=== PATIENT | male | born 1990 | race Caucasian/White ===

== ENCOUNTER 2019-02-02 23:58 | Emergency (ER) | payer OTHER ==
[~2019-02-02] VITALS: Ht 170.2 cm; Wt 68.0 kg
[2019-02-03 00:29] LABS: BASO % 0 % (0-3); EOS % 0 % (0-3); HEMATOCRIT 26.7 % (39.0-53.0); HEMOGLOBIN 8.6 g/dL (13.0-17.5); LYMPH # 1.2 x10^3/uL (1.0-4.8); LYMPH % 26 % (24-48); MEAN CORPUSCULAR HEMOGLOBIN 26 pg (25-35); MEAN CORPUSCULAR HGB CONC 32 g/dL (31-37); MEAN CORPUSCULAR VOLUME 80 fL (79-100); MONO # 0.4 x10^3/uL (0.0-1.1); MONO % 10 % (0-9); NEUT # 2.9 x10^3/uL (1.8-7.7); NEUT % 65 % (31-73); PLATELET COUNT 212 x10^3/uL (140-400); RED BLOOD COUNT 3.35 x10^6/uL (4.30-5.70); RED CELL DISTRIBUTION WIDTH 16.6 % (11.5-14.5); WHITE BLOOD COUNT 4.5 x10^3/uL (4.0-11.0)
[2019-02-03] MEDS ORDERED: IV NORMAL SALINE 1000ML BAG 1,000 ML IV SCH (00:30)
[2019-02-03 00:43] LABS: CALCIUM 7.5 mg/dL (8.5-10.1); GFR 87.7; POTASSIUM 3.7 mmol/L (3.5-5.1)
[2019-02-03 00:45] LABS: PROTHROMBIN TIME PATIENT 15.8 SEC (11.7-14.0)
[2019-02-03] MEDS ORDERED: LIDOCAINE 1% Multi-Dose 20 ML VIAL. INJ ONE (00:45)
[2019-02-03 00:51] LABS: ALBUMIN 3.5 g/dL (3.4-5.0); ALBUMIN/GLOBULIN RATIO 1.3 (1.0-1.7); TOTAL BILIRUBIN 0.3 mg/dL (0.2-1.0); TOTAL PROTEIN 6.1 g/dL (6.4-8.2)
--- NOTE | 2019-02-03 01:12 | PHYS DOC ---
Adult General Chief Complaint Chief Complaint: TRAUMA ALERT HPI HPI Patient is a 28 year old right handed incarcerated male who brought in by EMS because of laceration of left arm. Patient is incarcerated since 2017 and transferred to [facility] facility yesterday. Patient stated he tried to cut his left cubital area with his fingernail around 2300 suicidal ideation. EMS reported that patient has about 2 L of blood around his laceration and was pale and tachycardic improved with 1 L of IV fluids. EMS had to put pressure dressing and tourniquet to control the bleeding. Patient later admitted that he used milton or blade to cut himself and long-term staff found 2 razor blade at his room. Patient is up-to-date with his tetanus immunization. Review of Systems Review of Systems Constitutional: Denies fever or chills [] Eyes: Denies change in visual acuity, redness, or eye pain [] HENT: Denies nasal congestion or sore throat [] Respiratory: Denies cough or shortness of breath [] Cardiovascular: No additional information not addressed in HPI [] GI: Denies abdominal pain, nausea, vomiting, bloody stools or diarrhea [] : Denies dysuria or hematuria [] Musculoskeletal: Denies back pain or joint pain [] Integument: Denies rash or skin lesions [] Neurologic: Denies headache, focal weakness or sensory changes [] Endocrine: Denies polyuria or polydipsia [] All other systems were reviewed and found to be within normal limits, except as documented in this note. Current Medications Current Medications Current Medications Medications (Trade) Dose Ordered Sig/Yuliet Start Time Stop Time Status Last Admin Dose Admin Cefazolin Sodium 50 ml @ 100 mls/hr 1X ONCE 02/03/19 00:45 02/03/19 01:14 DC 02/03/19 00:45 100 MLS/HR Lidocaine HCl (Lidocaine 1% 20ml Vial) 20 ml 1X ONCE 02/03/19 00:45 02/03/19 00:46 DC 02/03/19 00:45 20 ML Sodium Chloride 1,000 ml @ 1,000 mls/hr Q1H 02/03/19 00:30 02/03/19 01:29 DC 02/03/19 00:45 1,000 MLS/HR Allergies Allergies Allergies Coded Allergies Type Severity Reaction Last Updated Verified No Known Drug Allergies 02/03/19 No Physical Exam Physical Exam Constitutional: Well nourished, mild distress, non-toxic appearance, pale. [] HENT: Normocephalic, atraumatic. Eyes: PERRLA, EOMI, conjunctiva normal, no discharge. [] Neck: Normal range of motion, no tenderness, supple, no stridor. [] Cardiovascular:Heart rate regular rhythm, no murmur [] Lungs & Thorax: Bilateral breath sounds clear to auscultation [] Skin: Warm, dry, no erythema, no rash. [] Extremities: 3 cm transverse and deep left cubital laceration with active bleeding that stopped with pressure dressing. Neurologic: Alert and oriented X 3, normal motor function, normal sensory function, no focal deficits noted. [] Psychologic: Affect normal, judgement normal, suicidal ideation. Current Patient Data Vital Signs Vital Signs Date Time Temp Pulse Resp B/P (MAP) Pulse Ox O2 Delivery O2 Flow Rate FiO2 02/03/19 01:22 74 16 135/94 (108) 100 Room Air 02/02/19 23:58 98.1 98.1 Lab Values Laboratory Tests Test 02/03/19 00:17 White Blood Count 4.5 x10^3/uL (4.0-11.0) Red Blood Count 3.35 x10^6/uL (4.30-5.70) L Hemoglobin 8.6 g/dL (13.0-17.5) L Hematocrit 26.7 % (39.0-53.0) L Mean Corpuscular Volume 80 fL (79-100) Mean Corpuscular Hemoglobin 26 pg (25-35) Mean Corpuscular Hemoglobin Concent 32 g/dL (31-37) Red Cell Distribution Width 16.6 % (11.5-14.5) H Platelet Count 212 x10^3/uL (140-400) Neutrophils (%) (Auto) 65 % (31-73) Lymphocytes (%) (Auto) 26 % (24-48) Monocytes (%) (Auto) 10 % (0-9) H Eosinophils (%) (Auto) 0 % (0-3) Basophils (%) (Auto) 0 % (0-3) Neutrophils # (Auto) 2.9 x10^3/uL (1.8-7.7) Lymphocytes # (Auto) 1.2 x10^3/uL (1.0-4.8) Monocytes # (Auto) 0.4 x10^3/uL (0.0-1.1) Eosinophils # (Auto) 0.0 x10^3/uL (0.0-0.7) Basophils # (Auto) 0.0 x10^3/uL (0.0-0.2) Prothrombin Time 15.8 SEC (11.7-14.0) H Prothrombin Time INR 1.3 (0.8-1.1) H Activated Partial Thromboplast Time 25 SEC (24-38) Sodium Level 134 mmol/L (136-145) L Potassium Level 3.7 mmol/L (3.5-5.1) Chloride Level 98 mmol/L (98-107) Carbon Dioxide Level 28 mmol/L (21-32) Anion Gap 8 (6-14) Blood Urea Nitrogen 7 mg/dL (8-26) L Creatinine 1.0 mg/dL (0.7-1.3) Estimated GFR (Cockcroft-Gault) 87.7 BUN/Creatinine Ratio 7 (6-20) Glucose Level 104 mg/dL (70-99) H Calcium Level 7.5 mg/dL (8.5-10.1) L Total Bilirubin 0.3 mg/dL (0.2-1.0) Aspartate Amino Transferase (AST) 31 U/L (15-37) Alanine Aminotransferase (ALT) 25 U/L (16-63) Alkaline Phosphatase 39 U/L (46-116) L Total Protein 6.1 g/dL (6.4-8.2) L Albumin 3.5 g/dL (3.4-5.0) Albumin/Globulin Ratio 1.3 (1.0-1.7) Ethyl Alcohol Level < 10 mg/dL (0-10) Laboratory Tests 02/03/19 00:17 Laboratory Tests 02/03/19 00:17 EKG EKG [] Radiology/Procedures Radiology/Procedures [] Course & Med Decision Making Course & Med Decision Making Evaluation of patient in ER showed 1-year-old male incarcerated patient with large laceration of left thumb without active bleeding that was repaired with suture with complaining of bleeding. Also had hemoglobin of 8.6 and long-term was advised to repeat hemoglobin in the morning. Dragon Disclaimer Dragon Disclaimer This electronic medical record was generated, in whole or in part, using a voice recognition dictation system. Departure Departure Impression: Primary Impression: Laceration of forearm, left, complicated Additional Impressions: Suicidal behavior with attempted self-injury Anemia Condition: RELEASED IN CUSTODY (To long-term) Patient Instructions: Anemia, FAQs, Laceration Care, Adult, Suicidal Feelings, How to Help Yourself, Sutured Wound Care Additional Instructions: Follow-up with previous on physician for recheck of blood regarding anemia Keep wound clean and dry Suture removal in 10 days Follow-up with long-term psychiatric in one day Scripts Cephalexin (KEFLEX) 500 Mg Capsule 2 CAP PO Q12HR, #20 CAP Prov: TAWNY CORREA MD 02/03/19 Ibuprofen (IBUPROFEN) 600 Mg Tablet 600 MG PO PRN Q6HRS PRN for PAIN, #20 TAB take with food or milk Prov: TAWNY CORREA MD 02/03/19 Laceration Repair Lac Repair Indication: Left forearm laceration Procedure: The patient was placed in the appropriate position and anesthesia around the laceration of left cubital area was given with 1% lidocaine. The area was then irrigated with normal saline. Active bleeding was repaired with 2 sutures of Vicryl 4-0.The laceration was repaired with 3 sutures of 3-0 nylon The wound area was then dressed with non adhesive and pressure dressing. Total repaired wound length: 3 cm Other Items: [OTHER ITEMS] The patient tolerated the procedure well. Complications: none. Problem Qualifiers Primary Impression: Laceration of forearm, left, complicated Encounter type: initial encounter Qualified Codes: S51.812A - Laceration without foreign body of left forearm, initial encounter Additional Impressions: Anemia Anemia type: unspecified type Qualified Codes: D64.9 - Anemia, unspecified TAWNY CORREA MD Feb 03, 2019 01:12
[2019-02-03 01:22] VITALS: BP 135/94
[2019-02-03] MEDS ORDERED: IBUP-1007 PO (01:30)
[2019-02-03] MEDS ORDERED: CEPH-264 PO (01:30)
--- NOTE | 2019-02-03 08:47 | RAD ---
Examination: KUB History: Possible swallowing of a razor blade. Comparison/Correlation: None Findings: Frontal view of the abdomen was obtained by portable technique. There is no bowel obstruction or extraluminal gas. No radiopaque foreign bodies identified. Ill-defined density involving the right upper quadrant overlying the liver is present. This may represent calcification. Impression: No radiopaque foreign body. Electronically signed by: Erwin Chandra MD (02/03/2019 8:44 AM) [facility]
== END 2019-02-03 01:47 | disposition home or self-care (01) ==
LOC: ER 23:58 → EEVIPCON 23:58 → ER 02-03 01:47
DX: S51.812A Laceration without foreign body of left forearm, initial encounter (principal); D64.9 Anemia, unspecified; T14.91XA Suicide attempt, initial encounter; X78.8XXA Intentional self-harm by other sharp object, initial encounter; Y93.89 Activity, other specified; Y92.89 Other specified places as the place of occurrence of the external cause; Y99.8 Other external cause status
CPT/HCPCS: 12002; 36415; 74018; 80053; 85025; 85610; 85730; 86850; 86900; 86901; 96365; 99285; G0480; J0690; J7030; 12032

== ENCOUNTER 2019-03-10 23:35 | Observation (INO) | payer OTHER ==
[~2019-03-10] VITALS: Ht 167.6 cm; Wt 66.5 kg
[~2019-03-10 23:35] MED LIST: CEPH-264 PO; IBUP-1007 PO
[2019-03-11] MEDS ORDERED: LIDOCAINE 1% PF 2 ML VIAL. ONE (00:13)
[2019-03-11] MEDS ORDERED: LIDOCAINE 1% PF 2 ML VIAL. INJ ONE (00:30)
[2019-03-11 00:59] LABS: BASO # 0.1 x10^3/uL (0.0-0.2); BASO % 2 % (0-3); EOS % 0 % (0-3); HEMATOCRIT 27.5 % (39.0-53.0); HEMOGLOBIN 8.9 g/dL (13.0-17.5); LYMPH # 2.2 x10^3/uL (1.0-4.8); LYMPH % 51 % (24-48); MEAN CORPUSCULAR HEMOGLOBIN 24 pg (25-35); MEAN CORPUSCULAR HGB CONC 33 g/dL (31-37); MEAN CORPUSCULAR VOLUME 74 fL (79-100); MONO # 0.3 x10^3/uL (0.0-1.1); MONO % 7 % (0-9); NEUT # 1.7 x10^3/uL (1.8-7.7); NEUT % 39 % (31-73); PLATELET COUNT 338 x10^3/uL (140-400); WHITE BLOOD COUNT 4.3 x10^3/uL (4.0-11.0)
--- NOTE | 2019-03-11 01:04 | PHYS DOC ---
Past Medical History Past Medical History: Seizure, Other Additional Past Medical Histor: Hep. C Past Surgical History: Tonsillectomy Additional Past Surgical Histo: unknown Alcohol Use: None Drug Use: None Adult General Chief Complaint Chief Complaint: LACERATION/AVULSION HPI HPI Patient is a 28 year old male who presents to the emergency department today, accompanied by 2 correctional officers from [place], via EMS with reports of an open laceration to his left antecubital area. She states he cut his left arm earlier today and [facility]. He was placed on a psychiatric suicide watch, patient denies any suicidal ideations or homicidal ideations. Patient states he ripped out his own sutures when they informed him that he had to stay in the [facility] for observation. He denies any numbness, tingling, weakness, or decreased range of motion of the affected extremity. He rates his pain as a 5 out of 10 on the pain scale, he states his last tetanus was less than 5 years ago. Patient states he has a history of cutting. Review of Systems Review of Systems Constitutional: Denies fever or chills [] Musculoskeletal: Denies back pain or joint pain [] Integument: Denies rash; see HPI Neurologic: Denies headache, focal weakness or sensory changes [] complete systems were reviewed and found to be within normal limits, except as documented in this note. Current Medications Current Medications Current Medications Medications (Trade) Dose Ordered Sig/Yuliet Start Time Stop Time Status Last Admin Dose Admin Lidocaine HCl (Xylocaine-Mpf 1% 2ml Vial) 2 ml STK-MED ONCE 03/11/19 00:13 03/11/19 00:13 DC Naproxen (Naprosyn) 500 mg 1X ONCE 03/11/19 01:30 03/11/19 01:31 Neomycin/ Polymyxin/ Bacitracin (Triple Antibiotic Ointment) 1 pkt 1X ONCE 03/11/19 01:30 03/11/19 01:31 Sodium Chloride 1,000 ml @ 1,000 mls/hr 1X ONCE 03/11/19 01:15 03/11/19 02:14 UNV Allergies Allergies Allergies Coded Allergies Type Severity Reaction Last Updated Verified No Known Drug Allergies 02/03/19 No Physical Exam Physical Exam Constitutional: Well developed, well nourished, no acute distress, non-toxic ap pearance. [] HENT: Normocephalic, atraumatic, bilateral external ears normal, oropharynx moist, no oral exudates, nose normal [] Eyes: PERRLA, conjunctiva normal, no discharge. [] Neck: Normal range of motion, no stridor. [] Cardiovascular:Heart rate regular rhythm Lungs & Thorax: Respirations even and unlabored, no retractions, no respiratory distress Skin: Warm, dry, no erythema, no rash, pallor noted; 3.5 cm laceration noted to medial antecubital space without any active bleeding. Extremities: No tenderness, no cyanosis, no clubbing, ROM intact, no edema. [] Neurologic: Alert and oriented X 3, normal motor function, normal sensory function, no focal deficits noted. [] Psychologic: Affect is flat, judgement normal, mood normal. [] Current Patient Data Vital Signs Vital Signs Date Time Temp Pulse Resp B/P (MAP) Pulse Ox O2 Delivery O2 Flow Rate FiO2 03/11/19 01:09 58 15 155/99 (117) 100 Room Air 03/10/19 23:35 98.1 98.1 Lab Values Laboratory Tests Test 03/11/19 00:50 White Blood Count 4.3 x10^3/uL (4.0-11.0) Red Blood Count 3.70 x10^6/uL (4.30-5.70) L Hemoglobin 8.9 g/dL (13.0-17.5) L Hematocrit 27.5 % (39.0-53.0) L Mean Corpuscular Volume 74 fL (79-100) L Mean Corpuscular Hemoglobin 24 pg (25-35) L Mean Corpuscular Hemoglobin Concent 33 g/dL (31-37) Red Cell Distribution Width 18.0 % (11.5-14.5) H Platelet Count 338 x10^3/uL (140-400) Neutrophils (%) (Auto) 39 % (31-73) Lymphocytes (%) (Auto) 51 % (24-48) H Monocytes (%) (Auto) 7 % (0-9) Eosinophils (%) (Auto) 0 % (0-3) Basophils (%) (Auto) 2 % (0-3) Neutrophils # (Auto) 1.7 x10^3/uL (1.8-7.7) L Lymphocytes # (Auto) 2.2 x10^3/uL (1.0-4.8) Monocytes # (Auto) 0.3 x10^3/uL (0.0-1.1) Eosinophils # (Auto) 0.0 x10^3/uL (0.0-0.7) Basophils # (Auto) 0.1 x10^3/uL (0.0-0.2) Laboratory Tests 03/11/19 00:50 EKG EKG [] Radiology/Procedures Radiology/Procedures Laceration Repair by me: Anesthesia: 1% lidocaine locally Location: Left eye Tendon/Joint/Nerves: No injury Foreign body: None detected after copious irrigation and exploration with 210 mls of normal saline Technique: 8 Simple Interrupted Sutures with 4-0 Ethilon Complexity: No subcutaneous sutures/mucosal repair/edge excision Post Closure Length: 3.5 cm Patient's bleeding was easily controlled in the department and there is no indication of anemia. No evidence of compartment syndrome, neurologic injury, vascular injury, open joint, tendon laceration, or foreign body. Patient is appropriate for outpatient follow up. 48 hour wound check. Course & Med Decision Making Course & Med Decision Making Pertinent Labs and Imaging studies reviewed. (See chart for details) dx: Left arm laceration Laceration repair as documented. VSS Patient was placed on a one-to-one observation upon arrival to the emergency room since he is on suicide watch at the [facility]. CBC revealed Hgb 8.9, pt given 1 L NS and 500 mg of naproxen in the ER. 0105- discussed pt with Dr. Duval, will type and screen patient and admit to hospitalist for observation with a repeat CBC in the morning. Dragon Disclaimer Dragon Disclaimer This electronic medical record was generated, in whole or in part, using a voice recognition dictation system. Departure Departure Impression: Primary Impression: Laceration of left upper extremity Additional Impressions: Anemia Intentional self-harm Disposition: 09 ADMITTED INPATIENT Admitting Physician: SANTOSH Ryan) Condition: STABLE Referrals: NO PCP (PCP) Problem Qualifiers Primary Impression: Laceration of left upper extremity Encounter type: initial encounter Qualified Codes: S41.112A - Laceration without foreign body of left upper arm, initial encounter Additional Impressions: Anemia Anemia type: other cause Other causes of anemia: acute posthemorrhagic Qualified Codes: D62 - Acute posthemorrhagic anemia MARY MELENDEZ APRN Mar 11, 2019 01:04
[2019-03-11] MEDS ORDERED: NEOMY/BACITR/POLYMYXIN OINT PACKET. TP ONE (01:30)
[2019-03-11] MEDS ORDERED: IV NORMAL SALINE 1000ML BAG 1,000 ML IV ONE (01:30)
[2019-03-11] MEDS ORDERED: NAPROXEN 500 MG TABLET PO ONE (01:30)
[2019-03-11 03:00] VITALS: BP 139/84
[2019-03-11] MEDS ORDERED: FERR325T14 PO (04:27)
[2019-03-11] MEDS ORDERED: PHEN100C PO (04:27)
[2019-03-11] MEDS ORDERED: DIPH50CA PO (04:27)
[2019-03-11] MEDS ORDERED: CALC200T3 PO (04:27)
[2019-03-11] MEDS ORDERED: GABA300C18 PO (04:27)
[2019-03-11] MEDS ORDERED: LEVE100020 PO (04:27)
[2019-03-11] MEDS ORDERED: VENL75CA PO (04:27)
[2019-03-11] MEDS ORDERED: CARB200T PO (04:27)
[2019-03-11] MEDS ORDERED: PANT20TA2 PO (04:27)
[2019-03-11] MEDS ORDERED: LEVE500T56 PO (04:27)
[2019-03-11 07:00] VITALS: BP 125/81
[2019-03-11 07:35] LABS: BASO % 0 % (0-3); EOS % 0 % (0-3); HEMATOCRIT 28.7 % (39.0-53.0); HEMOGLOBIN 9.1 g/dL (13.0-17.5); LYMPH # 1.3 x10^3/uL (1.0-4.8); LYMPH % 40 % (24-48); MEAN CORPUSCULAR HEMOGLOBIN 24 pg (25-35); MEAN CORPUSCULAR HGB CONC 32 g/dL (31-37); MEAN CORPUSCULAR VOLUME 75 fL (79-100); MONO # 0.4 x10^3/uL (0.0-1.1); MONO % 12 % (0-9); NEUT # 1.6 x10^3/uL (1.8-7.7); NEUT % 49 % (31-73); PLATELET COUNT 324 x10^3/uL (140-400); RED BLOOD COUNT 3.83 x10^6/uL (4.30-5.70); RED CELL DISTRIBUTION WIDTH 18.2 % (11.5-14.5); WHITE BLOOD COUNT 3.2 x10^3/uL (4.0-11.0)
[2019-03-11] MEDS ORDERED: carBAMazepine 200 MG TABLET PO SCH (09:00)
[2019-03-11] MEDS ORDERED: CALCIUM CARBONATE 500 MG TAB.CHEW PO SCH (09:00)
[2019-03-11] MEDS ORDERED: VENLAFAXINE XR 37.5 MG CAP.ER.24H. PO SCH ×2 (09:00→21:00)
[2019-03-11] MEDS ORDERED: FERROUS SULFATE 325 MG TABLET. PO SCH (09:00)
[2019-03-11] MEDS ORDERED: ACETAMINOPHEN 500 MG TABLET PO PRN (09:00)
[2019-03-11] MEDS ORDERED: PHENYTOIN SODIUM EXTENDED 100 MG CAPSULE PO SCH (09:00)
[2019-03-11] MEDS ORDERED: ACETAMINOPHEN/CODEINE 300/30MG TABLET. PO PRN (09:00)
[2019-03-11] MEDS: GABAPENTIN 300 MG CAPSULE. PO SCH ×2 (09:32→13:51)
--- NOTE | 2019-03-11 10:22 | NUR ---
SW consulted for PAT team eval. SW phoned PAT team for assessment and eval for SI. Jaden will come in to see pt. D/W RN.
[2019-03-11] MEDS ORDERED: diphenhydrAMINE HCL 25 MG CAPSULE PO SCH (10:45)
[2019-03-11] MEDS ORDERED: CEPH-264 PO (10:59)
[2019-03-11 11:00] VITALS: BP 149/92
[2019-03-11] MEDS ORDERED: IBUP-1027 PO (11:03)
--- NOTE | 2019-03-11 11:06 | PDOC1 ---
History and Physical Date of Admission Date of Admission DATE: 03/11/19 TIME: 11:00 Identification/Chief Complaint Chief Complaint SI Source Source: Caregiver, Chart review, Patient History of Present Illness History of Present Illness 28 white male, inmate,hx depression on effexor, had left arm lac that was sutured at [facility] but he tried to remove it, then there was SI so transferred here and ER had to re suture that opened lac wound, Pt admits to me hx SI, verifies his home meds to me, Wound inspected, couple sutures, not gaping, some swelling and pain around that area, Gaurds and sitter at bedside,. Will consult pAT team, PO kefflex on dc and some nsaids KEep SI watch unitl PAT team Past Medical History CENTRAL NERVOUS SYSTEM: Seizure Psych: Depression Past Surgical History Past Surgical History: No pertinent history Family History Family History: Family History Unknown Social History Smoke: No ALCOHOL: none Drugs: None Current Problem List Problem List Problems Medical Problems: (1) Anemia Status: Acute (2) Intentional self-harm Status: Acute (3) Laceration of left upper extremity Status: Acute Current Medications Current Medications Current Medications Lidocaine HCl (Xylocaine-Mpf 1% 2ml Vial) 4 ml 1X ONCE INJ Last administered on 03/11/19at 01:28; Start 03/11/19 at 00:30; Stop 03/11/19 at 00:31; Status DC Lidocaine HCl (Xylocaine-Mpf 1% 2ml Vial) 2 ml STK-MED ONCE .ROUTE ; Start 03/11/19 at 00:13; Stop 03/11/19 at 00:13; Status DC Naproxen (Naprosyn) 500 mg 1X ONCE PO Last administered on 03/11/19at 01:28; Start 03/11/19 at 01:30; Stop 03/11/19 at 01:31; Status DC Neomycin/ Polymyxin/ Bacitracin (Triple Antibiotic Ointment) 1 pkt 1X ONCE TP Last administered on 03/11/19at 01:28; Start 03/11/19 at 01:30; Stop 03/11/19 at 01:31; Status DC Sodium Chloride 1,000 ml @ 1,000 mls/hr 1X ONCE IV Last administered on 03/11/19at 01:28; Start 03/11/19 at 01:30; Stop 03/11/19 at 02:29; Status DC Acetaminophen (Tylenol) 500 mg PRN Q6HRS PRN PO MILD PAIN / TEMP; Start 03/11/19 at 09:00 Acetaminophen/ Codeine Phosphate (Tylenol #3) 1 tab PRN Q6HRS PRN PO MODERATE PAIN Last administered on 03/11/19at 09:35; Start 03/11/19 at 09:00 Calcium Carbonate/ Glycine (Tums) 250 mg BID PO Last administered on 03/11/19at 09:35; Start 03/11/19 at 09:00 Carbamazepine (TEGretol) 800 mg BID PO Last administered on 03/11/19at 09:35; Start 03/11/19 at 09:00 Ferrous Sulfate (Feosol) 325 mg DAILY PO Last administered on 03/11/19at 09:35; Start 03/11/19 at 09:00 Gabapentin (Neurontin) 300 mg TID PO Last administered on 03/11/19at 09:35; Start 03/11/19 at 09:00 Levetiracetam (Keppra) 500 mg HS PO ; Start 03/11/19 at 21:00 Phenytoin Sodium (Dilantin) 100 mg BID PO Last administered on 03/11/19at 09:35; Start 03/11/19 at 09:00 Pantoprazole Sodium (Protonix) 40 mg DAILYAC PO ; Start 03/11/19 at 11:30 Venlafaxine HCl (Effexor Xr) 75 mg DAILY PO ; Start 03/11/19 at 09:00; Stop 03/11/19 at 10:28; Status DC Non-Formulary Medication (Diphenhydramine Hcl ) 75 mg BID PO ; Start 03/11/19 at 21:00; Stop 03/11/19 at 10:33; Status DC Venlafaxine HCl (Effexor Xr) 75 mg HS PO ; Start 03/11/19 at 21:00 Diphenhydramine HCl (Benadryl) 75 mg BID PO Last administered on 03/11/19at 10:46; Start 03/11/19 at 10:45 Active Scripts Active Keflex (Cephalexin) 500 Mg Capsule 1 Cap PO TID Reported Tums (Calcium Carbonate) 200 Mg Tab.chew 200 Mg PO BID Protonix (Pantoprazole Sodium) 20 Mg Tablet.dr 40 Mg PO DAILY Keppra (Levetiracetam) 500 Mg Tablet 1 Tab PO HS Gabapentin (Gabapentin) 300 Mg Capsule 300 Mg PO TID Ferrous Sulfate 325 Mg Tablet 1 Tab PO DAILY Effexor Xr (Venlafaxine Hcl) 75 Mg Cap.er.24h 1 Cap PO DAILY Diphenhydramine Hcl 50 Mg Capsule 75 Mg PO BID Dilantin (Phenytoin Sodium Extended) 100 Mg Capsule 1 Cap PO BID Tegretol (Carbamazepine) 200 Mg Tablet 4 Tab PO BID Allergies Allergies: Coded Allergies: No Known Drug Allergies (Unverified , 02/03/19) ROS Review of System denies 14 pt, guarded demeanor, some left antecubital pain where the sutures are Physical Exam General: Alert, Oriented X3, Cooperative, No acute distress, Other (lots of tatooes, arms, chest) HEENT: PERRLA, EOMI Lungs: Clear to auscultation, Normal air movement Heart: S1S2, RRR, no thrills, no rubs, no gallops, no murmurs Cardiovascular: S1 Abdomen: Normal bowel sounds, Soft, No tenderness, No hepatosplenomegaly, No masses Male Genitals Exam: normal genitalia, normal prostate PELVIC: Nml ext genitalia Extremities: No clubbing, No cyanosis, No edema, Normal pulses, No tenderness/swelling Skin: Other (left antecubital wound with maybe 7-8 sutres, closed, non gapin, some tenderness, swelling there, but no bogginess) Neuro: Normal gait, Normal speech, Strength at 5/5 X4 ext, Normal tone, Sensation intact, Cranial nerves 3-12 NL, Reflexes 2+ Psych/Mental Status: Mental status NL, Mood NL Vitals Vitals Vital Signs Date Time Temp Pulse Resp B/P (MAP) Pulse Ox O2 Delivery O2 Flow Rate FiO2 03/11/19 10:46 Room Air 03/11/19 07:00 98.3 63 17 125/81 (96) 100 98.3 Labs Labs Laboratory Tests Test 03/11/19 00:50 03/11/19 07:10 White Blood Count 4.3 x10^3/uL (4.0-11.0) 3.2 x10^3/uL (4.0-11.0) Red Blood Count 3.70 x10^6/uL (4.30-5.70) 3.83 x10^6/uL (4.30-5.70) Hemoglobin 8.9 g/dL (13.0-17.5) 9.1 g/dL (13.0-17.5) Hematocrit 27.5 % (39.0-53.0) 28.7 % (39.0-53.0) Mean Corpuscular Volume 74 fL (79-100) 75 fL (79-100) Mean Corpuscular Hemoglobin 24 pg (25-35) 24 pg (25-35) Mean Corpuscular Hemoglobin Concent 33 g/dL (31-37) 32 g/dL (31-37) Red Cell Distribution Width 18.0 % (11.5-14.5) 18.2 % (11.5-14.5) Platelet Count 338 x10^3/uL (140-400) 324 x10^3/uL (140-400) Neutrophils (%) (Auto) 39 % (31-73) 49 % (31-73) Lymphocytes (%) (Auto) 51 % (24-48) 40 % (24-48) Monocytes (%) (Auto) 7 % (0-9) 12 % (0-9) Eosinophils (%) (Auto) 0 % (0-3) 0 % (0-3) Basophils (%) (Auto) 2 % (0-3) 0 % (0-3) Neutrophils # (Auto) 1.7 x10^3/uL (1.8-7.7) 1.6 x10^3/uL (1.8-7.7) Lymphocytes # (Auto) 2.2 x10^3/uL (1.0-4.8) 1.3 x10^3/uL (1.0-4.8) Monocytes # (Auto) 0.3 x10^3/uL (0.0-1.1) 0.4 x10^3/uL (0.0-1.1) Eosinophils # (Auto) 0.0 x10^3/uL (0.0-0.7) 0.0 x10^3/uL (0.0-0.7) Basophils # (Auto) 0.1 x10^3/uL (0.0-0.2) 0.0 x10^3/uL (0.0-0.2) Laboratory Tests Test 03/11/19 00:50 03/11/19 07:10 White Blood Count 4.3 x10^3/uL (4.0-11.0) 3.2 x10^3/uL (4.0-11.0) Red Blood Count 3.70 x10^6/uL (4.30-5.70) 3.83 x10^6/uL (4.30-5.70) Hemoglobin 8.9 g/dL (13.0-17.5) 9.1 g/dL (13.0-17.5) Hematocrit 27.5 % (39.0-53.0) 28.7 % (39.0-53.0) Mean Corpuscular Volume 74 fL (79-100) 75 fL (79-100) Mean Corpuscular Hemoglobin 24 pg (25-35) 24 pg (25-35) Mean Corpuscular Hemoglobin Concent 33 g/dL (31-37) 32 g/dL (31-37) Red Cell Distribution Width 18.0 % (11.5-14.5) 18.2 % (11.5-14.5) Platelet Count 338 x10^3/uL (140-400) 324 x10^3/uL (140-400) Neutrophils (%) (Auto) 39 % (31-73) 49 % (31-73) Lymphocytes (%) (Auto) 51 % (24-48) 40 % (24-48) Monocytes (%) (Auto) 7 % (0-9) 12 % (0-9) Eosinophils (%) (Auto) 0 % (0-3) 0 % (0-3) Basophils (%) (Auto) 2 % (0-3) 0 % (0-3) Neutrophils # (Auto) 1.7 x10^3/uL (1.8-7.7) 1.6 x10^3/uL (1.8-7.7) Lymphocytes # (Auto) 2.2 x10^3/uL (1.0-4.8) 1.3 x10^3/uL (1.0-4.8) Monocytes # (Auto) 0.3 x10^3/uL (0.0-1.1) 0.4 x10^3/uL (0.0-1.1) Eosinophils # (Auto) 0.0 x10^3/uL (0.0-0.7) 0.0 x10^3/uL (0.0-0.7) Basophils # (Auto) 0.1 x10^3/uL (0.0-0.2) 0.0 x10^3/uL (0.0-0.2) VTE Prophylaxis Ordered VTE Prophylaxis Devices: Yes VTE Pharmacological Prophylaxi: Yes Assessment/Plan Assessment/Plan Left arm lac, self induced - s./p suturing ER and [facility] SI Depression major PAst SI attempts SZ? on aeds (3) Plan: PAT team Resume home meds Empirix kefflex (Debbie he manipulated it) and some nsaid to help with pain and swelling Ok for dc later if cleared psych brody OBS TOREY BELCHER MD Mar 11, 2019 11:06
--- NOTE | 2019-03-11 11:07 | PDOC3 ---
Discharge Summary Visit Information Date of Admission: Mar 10, 2019 Date of Discharge: Mar 11, 2019 Admitting Diagnosis Comment: Left arm lac, self induced - s./p suturing [facility] SI Depression major PAst SI attempts SZ? on aeds (3) Final Diagnosis Problems Medical Problems: (1) Anemia Status: Acute (2) Intentional self-harm Status: Acute (3) Laceration of left upper extremity Status: Acute Brief Hospital Course Allergies Allergies Coded Allergies Type Severity Reaction Last Updated Verified No Known Drug Allergies 02/03/19 No Vital Signs Vital Signs Date Time Temp Pulse Resp B/P (MAP) Pulse Ox O2 Delivery O2 Flow Rate FiO2 03/11/19 10:46 Room Air 03/11/19 07:00 98.3 63 17 125/81 (96) 100 98.3 Lab Results Laboratory Tests Test 03/11/19 00:50 03/11/19 07:10 White Blood Count 4.3 x10^3/uL (4.0-11.0) 3.2 x10^3/uL (4.0-11.0) Red Blood Count 3.70 x10^6/uL (4.30-5.70) 3.83 x10^6/uL (4.30-5.70) Hemoglobin 8.9 g/dL (13.0-17.5) 9.1 g/dL (13.0-17.5) Hematocrit 27.5 % (39.0-53.0) 28.7 % (39.0-53.0) Mean Corpuscular Volume 74 fL (79-100) 75 fL (79-100) Mean Corpuscular Hemoglobin 24 pg (25-35) 24 pg (25-35) Mean Corpuscular Hemoglobin Concent 33 g/dL (31-37) 32 g/dL (31-37) Red Cell Distribution Width 18.0 % (11.5-14.5) 18.2 % (11.5-14.5) Platelet Count 338 x10^3/uL (140-400) 324 x10^3/uL (140-400) Neutrophils (%) (Auto) 39 % (31-73) 49 % (31-73) Lymphocytes (%) (Auto) 51 % (24-48) 40 % (24-48) Monocytes (%) (Auto) 7 % (0-9) 12 % (0-9) Eosinophils (%) (Auto) 0 % (0-3) 0 % (0-3) Basophils (%) (Auto) 2 % (0-3) 0 % (0-3) Neutrophils # (Auto) 1.7 x10^3/uL (1.8-7.7) 1.6 x10^3/uL (1.8-7.7) Lymphocytes # (Auto) 2.2 x10^3/uL (1.0-4.8) 1.3 x10^3/uL (1.0-4.8) Monocytes # (Auto) 0.3 x10^3/uL (0.0-1.1) 0.4 x10^3/uL (0.0-1.1) Eosinophils # (Auto) 0.0 x10^3/uL (0.0-0.7) 0.0 x10^3/uL (0.0-0.7) Basophils # (Auto) 0.1 x10^3/uL (0.0-0.2) 0.0 x10^3/uL (0.0-0.2) Laboratory Tests Test 03/11/19 00:50 03/11/19 07:10 White Blood Count 4.3 x10^3/uL (4.0-11.0) 3.2 x10^3/uL (4.0-11.0) Red Blood Count 3.70 x10^6/uL (4.30-5.70) 3.83 x10^6/uL (4.30-5.70) Hemoglobin 8.9 g/dL (13.0-17.5) 9.1 g/dL (13.0-17.5) Hematocrit 27.5 % (39.0-53.0) 28.7 % (39.0-53.0) Mean Corpuscular Volume 74 fL (79-100) 75 fL (79-100) Mean Corpuscular Hemoglobin 24 pg (25-35) 24 pg (25-35) Mean Corpuscular Hemoglobin Concent 33 g/dL (31-37) 32 g/dL (31-37) Red Cell Distribution Width 18.0 % (11.5-14.5) 18.2 % (11.5-14.5) Platelet Count 338 x10^3/uL (140-400) 324 x10^3/uL (140-400) Neutrophils (%) (Auto) 39 % (31-73) 49 % (31-73) Lymphocytes (%) (Auto) 51 % (24-48) 40 % (24-48) Monocytes (%) (Auto) 7 % (0-9) 12 % (0-9) Eosinophils (%) (Auto) 0 % (0-3) 0 % (0-3) Basophils (%) (Auto) 2 % (0-3) 0 % (0-3) Neutrophils # (Auto) 1.7 x10^3/uL (1.8-7.7) 1.6 x10^3/uL (1.8-7.7) Lymphocytes # (Auto) 2.2 x10^3/uL (1.0-4.8) 1.3 x10^3/uL (1.0-4.8) Monocytes # (Auto) 0.3 x10^3/uL (0.0-1.1) 0.4 x10^3/uL (0.0-1.1) Eosinophils # (Auto) 0.0 x10^3/uL (0.0-0.7) 0.0 x10^3/uL (0.0-0.7) Basophils # (Auto) 0.1 x10^3/uL (0.0-0.2) 0.0 x10^3/uL (0.0-0.2) Brief Hospital Course Mr. Bee is a 28 old [sex] who presented with [ ] Assessment Assessment 28 white male, inmate,hx depression on effexor, had left arm lac that was sutured at [facility] but he tried to remove it, then there was SI so transferred here and ER had to re suture that opened lac wound, Pt admits to me hx SI, verifies his home meds to me, Wound inspected, couple sutures, not gaping, some swelling and pain around that area, Gaurds and sitter at bedside,. Will consult pAT team, PO kefflex on dc and some nsaids KEep SI watch unitl PAT team Discharge Information Condition at Discharge: Improved, Stable Disposition/Orders: Other (shelter) Scheduled Calcium Carbonate (Tums) 200 Mg Tab.chew, 200 MG PO BID for GERD, (Reported) Entered as Reported by: KIRBY ASCENCIO RN on 03/11/19426 Last Action: Continued on 03/11/19855 by TOREY BELCHER Carbamazepine (Tegretol) 200 Mg Tablet, 4 TAB PO BID for seizures, #60 (Reported) Entered as Reported by: KIRBY ASCENCIO RN on 03/11/19426 Last Taken: Unknown Dose on 03/10/19 Last Action: Continued on 03/11/19855 by TOREY BELCHER Cephalexin (Keflex) 500 Mg Capsule, 1 CAP PO TID for prophylactic for left arm woun, #21 Prescribed by: TOREY BELCHER on 03/11/19 1059 Diphenhydramine Hcl (Diphenhydramine Hcl) 50 Mg Capsule, 75 MG PO BID for rhinitis, (Reported) Entered as Reported by: KIRBY ASCENCIO RN on 03/11/19426 Last Taken: Unknown Dose on 03/10/19 Last Action: Converted on 03/11/19 1007 by TOREY BELCHER Ferrous Sulfate (Ferrous Sulfate) 325 Mg Tablet, 1 TAB PO DAILY for anemia, #30 Ref 3 (Reported) Entered as Reported by: KIRBY ASCENCIO RN on 03/11/19426 Last Taken: Unknown Dose on 03/10/19 Last Action: Continued on 03/11/19855 by TOREY BELCHER Gabapentin (Gabapentin ) 300 Mg Capsule, 300 MG PO TID for NEUROGENIC PAIN, (Reported) Entered as Reported by: KIRBY ASCENCIO RN on 03/11/19426 Last Taken: Unknown Dose on 03/10/19 Last Action: Continued on 03/11/19855 by TOREY BELCHER Levetiracetam (Keppra) 500 Mg Tablet, 1 TAB PO HS for seizures, #180 Ref 3 (Reported) Entered as Reported by: KIRBY ASCENCIO RN on 03/11/19426 Last Taken: Unknown Dose on 03/10/19 Last Action: Continued on 03/11/19855 by TOREY BELCHER Pantoprazole Sodium (Protonix) 20 Mg Tablet.dr, 40 MG PO DAILY for GERD, (Reported) Entered as Reported by: KIRBY ASCENCIO RN on 03/11/19426 Last Action: Converted on 03/11/19855 by TOREY BELCHER Phenytoin Sodium Extended (Dilantin) 100 Mg Capsule, 1 CAP PO BID for seizures, #90 Ref 3 (Reported) Entered as Reported by: KIRBY ASCENCIO RN on 03/11/19426 Last Taken: Unknown Dose on 03/10/19 Last Action: Continued on 03/11/19855 by TOREY BELCHER Venlafaxine Hcl (Effexor Xr) 75 Mg Cap.er.24h, 1 CAP PO DAILY for depression /anxiety, #30 (Reported) Entered as Reported by: KIRBY ASCENCIO RN on 03/11/19426 Last Taken: Unknown Dose on 03/10/19 Last Action: Converted on 03/11/19855 by TOREY BELCHER Scheduled PRN Ibuprofen (Ibuprofen) 400 Mg Tablet, 400 MG PO PRN Q6HRS PRN for INFLAMMATION for 10 Days Prescribed by: TOREY BELCHER on 03/11/19 1103 Discontinued Medications Cephalexin (Keflex) 500 Mg Capsule, 2 CAP PO Q12HR, #20 Prescribed by: TAWNY CORREA MD on 02/03/19129 Last Action: Reviewed on 03/11/19855 by TOREY BELCHER Ibuprofen (Ibuprofen) 600 Mg Tablet, 600 MG PO PRN Q6HRS PRN for PAIN, #20 take with food or milk Prescribed by: TAWNY CORREA MD on 02/03/19129 Last Action: HELD on 03/11/19855 by TOREY BELCHER Levetiracetam (Keppra) 1,000 Mg Tablet, 1 TAB PO Q12HR for seizures, #60 Ref 5 (Reported) Entered as Reported by: KIRBY ASCENCIO RN on 03/11/19426 Last Taken: Unknown Dose on 03/10/19 Last Action: HELD on 03/11/19855 by TOREY GUZMAN MD Mar 11, 2019 11:07
[2019-03-11] MEDS ORDERED: CELECOXIB 100 MG CAPSULE. PO SCH (11:15)
[2019-03-11] MEDS ORDERED: PANTOPRAZOLE 40 MG TABLET.DR. PO SCH (11:30)
[2019-03-11 11:47] LABS: BARBITURATES NEG (NEG); BENZODIAZEPINES NEG (NEG); CANNABINOIDS NEG (NEG); COCAINE NEG (NEG); METHADONE NEG (NEG); OPIATES NEG (NEG); PHENCYCLIDINE NEG (NEG)
[2019-03-11 11:50] LABS: AMPHETAMINE/METHAMPHETAMINE NEG (NEG)
--- NOTE | 2019-03-11 13:12 | NUR ---
Report called to Sandrita at [facility]. Patient to return this afternoon.
--- NOTE | 2019-03-11 14:26 | NUR ---
Discharge Note: JAN ZELAYA [facility] Discharge instructions and discharge home medications reviewed with Other facility and a copy given. All questions have been answered and understanding verbalized. The following instructions and handouts were given: discharge instructions, new prescriptions, education. Discontinued lines and drains: Peripheral IV discontinued intact. Patient [facility] with Half-Way Guards via Wheelchair
[2019-03-11] MEDS ORDERED: levETIRAcetam 500 MG TABLET PO SCH (21:00)
[2019-03-11] MEDS ORDERED: DIPHENHYDRAMINE HCL PO SCH (21:00)
== END 2019-03-11 14:28 | disposition short-term general hospital (02) ==
LOC: ER 23:35 → EEVIPCON 23:35 → 5 SOUTH 03-11 01:05
PROVIDERS: ADMIT Internal Medicine; ATTEND Internal Medicine
DX: S41.112A Laceration without foreign body of left upper arm, initial encounter (principal); D64.9 Anemia, unspecified; F32.9 Major depressive disorder, single episode, unspecified; R56.9 Unspecified convulsions; Z79.899 Other long term (current) drug therapy; Z98.890 Other specified postprocedural states; Z91.5 Personal history of self-harm; X58.XXXA Exposure to other specified factors, initial encounter; Y93.89 Activity, other specified; Y92.89 Other specified places as the place of occurrence of the external cause; Y99.8 Other external cause status
CPT/HCPCS: 12013; 36415; 80307; 85025; 86850; 86900; 86901; 99284; G0378; J7030; Q0163; G0379